=== PATIENT | female | born 2000 | race Caucasian/White ===

== ENCOUNTER 2024-08-25 12:28 | Emergency (ER) | payer BC, SELFPAY ==
[2024-08-25 12:35] VITALS: BP 122/68; PULSE 85; RESP 16; TEMP 36.7; O2SAT 100; BMI 22.3
--- NOTE | 2024-08-25 14:14 | CTR_ITS ---
PROCEDURE INFORMATION: Exam: CT Abdomen And Pelvis Without Contrast Exam date and time: 08/25/2024 4:16 PM Age: 23 years old Clinical indication: Abdominal pain; Additional info: Flank pain TECHNIQUE: Imaging protocol: Computed tomography of the abdomen and pelvis without contrast. Radiation optimization: All CT scans at this facility use at least one of these dose optimization techniques: automated exposure control; mA and/or kV adjustment per patient size (includes targeted exams where dose is matched to clinical indication); or iterative reconstruction. COMPARISON: CT abdomen pelvis wo/w [id number] 05/14/2019 3:18 AM RADIATION DOSE METRICS: Total DLP (mGy-cm): 322.15 FINDINGS: Lungs: Visualized lung bases appear clear. Liver: Liver appears unremarkable for unenhanced exam and without focal abnormality. Gallbladder and biliary ducts: Gallbladder shows no calcified gallstones and appears unremarkable for unenhanced exam. No significant biliary ductal dilatation. Pancreas: Normal. No ductal dilation. Spleen: Spleen appears upper limits of normal and unremarkable for unenhanced exam. A splenule is noted, variation of normal. Adrenal glands: Normal. No mass. Kidneys and ureters: Small punctate nonobstructing renal calculi are seen bilaterally. A 2.5 mm distal right ureteral calculus is seen just proximal to the UVJ. Klka-[id number] hydronephrosis of the right kidney and mild ureterectasis of the right ureter seen indicating secondary yptb-iz-sqokprea obstructive uropathy. Kidneys appear unremarkable otherwise for unenhanced exam. No abnormal perinephric stranding. Stomach and bowel: Unremarkable. No obstruction. No significant mucosal thickening. Moderate stool volume, more prominent in the right colon. Appendix: No evidence of appendicitis. Intraperitoneal space: No significant free fluid or ascites. No free air. Vasculature: Unremarkable. No abdominal aortic aneurysm. Lymph nodes: Unremarkable. No enlarged lymph nodes. Urinary bladder: Urinary bladder appears unremarkable for unenhanced exam. Reproductive: Unremarkable as visualized. Bones/joints: Bone windows show no acute osseous abnormality. Soft tissues: Unremarkable. CT/CT abdomen pelvis wo con [id number] IMPRESSION: 1. Small punctate nonobstructing bilateral renal calculi. 2. 2.5 mm distal right ureteral calculus just proximal to the UVJ with secondary [id number]-hd-[id number] obstructive uropathy on the right.
[2024-08-25 14:16] VITALS: BP 147/89; PULSE 93; RESP 16; O2SAT 100
--- NOTE | 2024-08-25 14:27 | ED_ITS ---
HPI - Back Pain/Injury 2 General: Chief Complaint: Back Pain/Injury Stated Complaint: ABD pain low back Time Seen by Provider: 08/25/24 14:13 History of Present Illness: 23-year-old female with no significant p ast medical history other than having had kidney stones in the past who presents the emergency room with flank pain. She been having right flank pain for a day or so. She has had some nausea and vomiting. No fevers. She has noted some mild dysuria. Related Data Previous Rx's Medication Instructions Recorded cephalexin 500 mg capsule 500 mg PO BID 5 days #10 caps 08/25/24 diclofenac sodium 50 mg 50 mg PO BID PRN pain #14 tabs 08/25/24 tablet,delayed release hydrocodone 5 mg-acetaminophen 325 1 tab PO Q8H PRN pain #14 tabs 08/25/24 mg tablet ondansetron 4 mg disintegrating 4 mg PO Q8H PRN nausea and 08/25/24 tablet vomiting #10 tabs polyethylene glycol 3350 17 17 g PO DAILY #510 grams 08/25/24 gram/dose oral powder (Miralax) tamsulosin 0.4 mg capsule (Flomax) 0.4 mg PO DAILY #30 caps 08/25/24 Allergies Allergy/AdvReac Type Severity Reaction Status Date / Time No Known Allergies Allergy Verified 08/25/24 12:44 Review of Systems 2 Narrative: Constitutional symptoms: Negative except as documented in HPI. Skin symptoms: Negative except as documented in HPI. Eye symptoms: Negative except as documented in HPI. ENMT symptoms: Negative except as documented in HPI. Respiratory symptoms: Negative except as documented in HPI. Cardiovascular symptoms: Negative except as documented in HPI. Gastrointestinal symptoms: Negative except as documented in HPI. Genitourinary symptoms: Negative except as documented in HPI. Musculoskeletal symptoms: Negative except as documented in HPI. Neurologic symptoms: Negative except as documented in HPI. Psychiatric symptoms: Negative except as documented in HPI. Endocrine symptoms: Negative except as documented in HPI. Physical Exam 2 Narrative: EXAM NARRATIVE: General: Alert, no acute distress. Skin: Warm, dry. Head: Normocephalic, atraumatic. Neck: Supple, trachea midline. Eye: Extraocular movements are intact. Ears, nose, mouth and throat: mucosa moist. Cardiovascular: Regular, Normal peripheral perfusion. Respiratory: Lungs are clear to auscultation, respirations are non-labored, breath sounds are equal, Symmetrical chest wall expansion. Gastrointestinal: Soft, right flank pain, Non distended Musculoskeletal: Normal ROM, no deformity. Neurological: Alert and oriented, No focal neurological deficit observed. Psychiatric: Cooperative, appropriate mood & affect. Course 2 Vital Signs: Vital signs: Vital Signs Temperature 98.0 F 08/25/24 12:35 Pulse Rate 65 08/25/24 17:00 Respiratory Rate 16 08/25/24 17:00 Blood Pressure 112/68 08/25/24 17:00 Pulse Oximetry 100 08/25/24 17:00 Oxygen Delivery Me thod Room Air 08/25/24 17:00 MDM - Back Pain/Injury Medical Decision Making Medical decision making: Differential diagnosis including but not limited to and based on the above HPI, review of systems and physical exam: Ureterolithiasis. Urinary tract infection. Appendicitis. Cholecystis. Musculoskeletal / back pain. Pyelonephritis Orders placed to evaluate differential diagnosis based on the above differential, HPI and physical exam Lab Review: Laboratory results were reviewed and interpreted by myself the emergency room physician. No leukocytosis. No anemia. No renal failure. Urine does show significant hematuria. CT of the abdomen pelvis without contrast: Small bilateral renal calculi. 2.5 mm distal right ureteral calculus just proximal to the UVJ with some moderate obstructive uropathy on the right. I reviewed the patient's medical record. Reexamination: Patient says that her pain is much improved. She is no longer nauseous. She says she has a mild headache. She has had kidney stones in the past. She has other stones in her kidneys. We discussed to return to the ER if she has a fever. We also discussed follow-up with urologist. Assessment and plan: Ureterolithiasis Obstructive uropathy ? IV Zofran in the emergency room. - Discharged home - Discussed plan with patient. Answered any questions. - Evaluation and treatment of this problem were appropriate in the emergency setting. Labs 08/25/24 14:26 08/25/24 14:26 Radiology Impressions Abdomen/Pelvis CT 08/25/24 14:14 IMPRESSION: 1. Small punctate nonobstructing bilateral renal calculi. 2. 2.5 mm distal right ureteral calculus just proximal to the UVJ with secondary efma-nj-azbehyxc obstructive uropathy on the right. Laboratory Results WBC 10.35 10^3/uL (3.29-11.43) 08/25/24 14: RBC 4.86 10^6/uL (3.85-5.65) 08/25/24 14:26 Hgb 14.50 g/dL (11.27-16.99) 08/25/24 14:26 Hct 42.9 % (36-47) 08/25/24 14:26 MCV 88.3 fl (85-98) 08/25/24 14:26 MCH 29.8 pg (27-33) 08/25/24 14:26 MCHC 33.8 g/dL (30-55) 08/25/24 14: RDW 11.4 % (12.1-15.1) L 08/25/24 14: Plt Count 298 10^3/cmm (157-399) 08/25/24 14: MPV 10.4 fL (7.4-10.4) 08/25/24 14:26 Neut % (Auto) 78.6 % 08/25/24 14:26 Lymph % (Auto) 11.8 % 08/25/24 14:26 Miller % (Auto) 7.1 % 08/25/24 14:26 Eos % (Auto) 1.9 % 08/25/24 14:26 Baso % (Auto) 0.3 % 08/25/24 14:26 Neut # (Auto) 8.14 10^3/uL (1.8-7.7) H 08/25/24 14:26 Lymph # (Auto) 1.2 10^3/uL (0.8-4.8) 08/25/24 14:26 Miller # (Auto) 0.7 10^3/uL (0.2-0.9) 08/25/24 14:26 Eos # (Auto) 0.2 10^3/uL (0.0-0.8) 08/25/24 14:26 Baso # (Auto) 0.0 10^3/uL (0.0-0.1) 08/25/24 14:26 Nucleated RBC % (auto) 0 % 08/25/24 14: Nucleated RBCs # 0.0 /100WBC 08/25/24 14:26 Sodium 141 mmol/L (136-145) 08/25/24 14:26 Potassium 3.9 mmol/L (3.5-5.1) 08/25/24 14:26 Chloride 105 mmol/L (98-107) 08/25/24 14:26 Carbon Dioxide 25 mmol/L (22-29) 08/25/24 14:26 Anion Gap 14.9 (5-19) 08/25/24 14:26 BUN 13 mg/dL (6-20) 08/25/24 14:26 Creatinine 0.8 mg/dL (0.5-0.9) 08/25/24 14:26 GFR Calculation 87.4 mL/min (90-130) L 08/25/24 14:26 Glucose 96 mg/dL (65-115) 08/25/24 14:26 Calculated Osmolality 292 mOsm/kg (285-295) 08/25/24 14:26 Lactic Acid 1.0 mmol/L (0.5-2.2) 08/25/24 14:26 Calcium 9.6 mg/dL (8.5-10.5) 08/25/24 14:26 Total Bilirubin 0.6 mg/dL (0.15-1.2) 08/25/24 14:26 AST 17 U/L (0-32) 08/25/24 14:26 ALT 11 U/L (0-33) 08/25/24 14:26 Alkaline Phosphatase 80 U/L (35-105) 08/25/24 14:26 Total Protein 7.5 g/dL (6.6-8.7) 08/25/24 14:26 Albumin 5.0 g/dL (3.5-5.2) 08/25/24 14:26 Globulin 2.5 g/dL (1.3-4.6) 08/25/24 14:26 HCG, Qual Negative (Negative) 08/25/24 15:17 Urine Color Yellow (Yellow) 08/25/24 15:17 Urine Appearance Clear (CLEAR) 08/25/24 15:17 Urine pH 6.0 (5-7) 08/25/24 15:17 Ur Specific [place] 1.024 (1.005-1.030) 08/25/24 15:17 Urine Protein Trace (Negative) A 08/25/24 15:17 Urine Glucose (UA) Negative (Normal) 08/25/24 15:17 Urine Ketones 2+ (Negative) H 08/25/24 15:17 Urine Blood 3+ (Negative) A 08/25/24 15:17 Urine Nitrate Negative (Negative) 08/25/24 15:17 Urine Bilirubin Negative (Negative) 08/25/24 15:17 Urine Urobilinogen 1.0 mg/dL (Negative) 08/25/24 15:17 Ur Leukocyte Esterase 1+ (Negative) A 08/25/24 15:17 Urine RBC >100 /hpf (0-2) H 08/25/24 15:17 Urine WBC 6-10 /hpf (0-5) 08/25/24 15:17 Ur Squamous Epith Cells 0-5 /hpf (0-5) 08/25/24 15:17 Amorphous Sediment Not Reportable 08/25/24 15:17 Urine Bacteria None seen /hpf (NONE) 08/25/24 15:17 Hyaline Casts 3.30 /lpf 08/25/24 15:17 All radiology interpretation(s) finalized by discharge Discharge Plan Discharge Patient Disposition: Home Clinical Impression: Ureterolithiasis Condition: Stable Prescriptions: New hydrocodone-acetaminophen 5-325 mg tablet 1 tab PO Q8H PRN (Reason: pain) Qty: 14 0RF Rx Instructions: Take 1/2 to 1 tab every 8 hours as needed for pain tamsulosin [Flomax] 0.4 mg capsule 0.4 mg PO DAILY Qty: 30 0RF cephalexin 500 mg capsule 500 mg PO BID 5 Days Qty: 10 0RF diclofenac sodium 50 mg tablet,delayed release (DR/EC) 50 mg PO BID PRN (Reason: pain) Qty: 14 0RF polyethylene glycol 3350 [Miralax] 17 gram/dose powder 17 g PO DAILY Qty: 510 0RF Rx Instructions: Take 1 scoop daily while taking pain medications. ondansetron 4 mg tablet,disintegrating 4 mg PO Q8H PRN (Reason: nausea and vomiting) Qty: 10 0RF Discharge Orders: Discharge ED (Routine); Ordered 08/25/24 Ordered By: Anaya Tello Referrals: Siddharth Rutledge [Referring] - 4-7 days (Call for a follow-up appointment either with Dr. Rutledge or with the urologist of your choosing.) Discharge Diet: Advance as tolerated Discharge Activity: Increase activity as tolerated Patient Instructions: Opioid Safety, Pain Management Activity Restrictions/Additional Instructions: Call for appointment with urology. If fever (temp >100.4) develops return to the emergency room immediately, as this is an emergency. Take nausea medication prior to taking pain medications. Thank you for choosing [facility] for your healthcare needs today. Please realize this is an emergency room and that we are providing you with a medical screening exam and this may not be complete and all inclusive of all the testing and or work up that you may need to determine your ailment or severity of your illness. You have been screened and evaluated and felt safe for discharge. Health conditions do change or evolve sometimes and as such it is important that you follow up with your Primary Doctor to be re checked, 3-5 days is a general good time frame for follow up. 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
[2024-08-25 14:36] LABS: Basophils % 0.3 %; Eosinophils # 0.2 10^3/uL (0.0-0.8); Eosinophils % 1.9 %; Hematocrit 42.9 % (36-47); Lymphocytes # 1.2 10^3/uL (0.8-4.8); Lymphocytes % 11.8 %; Mean Corpuscular HGB Conc 33.8 g/dL (30-55); Mean Corpuscular Hemoglobin 29.8 pg (27-33); Mean Corpuscular Volume 88.3 fl (85-98); Mean Platelet Volume 10.4 fL (7.4-10.4); Monocytes # 0.7 10^3/uL (0.2-0.9); Monocytes % 7.1 %; Neutrophils # 8.14 10^3/uL (1.8-7.7); Neutrophils % 78.6 %; Nucleated Red Blood Cells % 0 %; Platelet Count 298 10^3/cmm (157-399); Red Blood Count 4.86 10^6/uL (3.85-5.65); Red Cell Distribution Width 11.4 % (12.1-15.1); White Blood Count 10.35 10^3/uL (3.29-11.43)
[2024-08-25 14:48] LABS: Alanine Aminotransferase 11 U/L (0-33); Alkaline Phosphatase 80 U/L (35-105); Anion Gap 14.9 (5-19); Aspartate Amino Transferase 17 U/L (0-32); Blood Urea Nitrogen 13 mg/dL (6-20); Calcium 9.6 mg/dL (8.5-10.5); Carbon Dioxide 25 mmol/L (22-29); Chloride 105 mmol/L (98-107); Creatinine Clr Calc Pharmacy 95.7251; Globulin 2.5 g/dL (1.3-4.6); Glomerular Filtration Rate 87.4 mL/min (90-130); Glucose 96 mg/dL (65-115); Osmolality Calculated 292 mOsm/kg (285-295); Potassium 3.9 mmol/L (3.5-5.1); Sodium 141 mmol/L (136-145); Total Bilirubin 0.6 mg/dL (0.15-1.2); Total Protein 7.5 g/dL (6.6-8.7)
[2024-08-25] MEDS: ondansetron 2 mg/ML SDV 2 mL 4 MG IVP (15:08)
[2024-08-25 15:32] LABS: Bilirubin Urine Negative (Negative); Blood Urine 3+ (Negative); Glucose Urine UA Negative (Normal); HCG Qualitative Urine. Negative (Negative); Ketones Urine 2+ (Negative); Leukocyte Esterase Urine 1+ (Negative); Nitrate Urine Negative (Negative); Protein Urine Trace (Negative); Specific Gravity, Urine 1.024 (1.005-1.030); Urine Appearance Clear (CLEAR); Urine Color Yellow (Yellow)
[2024-08-25 15:37] LABS: Add Urine Microscopic? YES; Bacteria Urine None Seen /hpf; RBC Urine >100 /hpf (0-2); Squamous Epithelial Cell Urine 0-5 /hpf (0-5)
[2024-08-25 15:48] LABS: Add Urine Culture? Yes
[2024-08-25 17:00] VITALS: BP 112/68; PULSE 65; RESP 16; O2SAT 100
[2024-08-25 18:00] VITALS: BP 98/70; PULSE 71; O2SAT 100
[2024-08-25] MEDS: cefTRIAXone 1,000 mg SDV 1000 MG IVP (18:01)
[2024-08-25] MEDS: HYDROcodone-acetaminophen 5-325 mg Tablet 2 TAB PO (18:26)
[2024-08-25] MEDS: ondansetron 4 MG Tablet PO ×2 (18:27)
[2024-08-25 18:33] VITALS: BP 113/80; PULSE 74; O2SAT 100
== END 2024-08-25 18:35 | disposition home or self-care (01) ==
PROVIDERS: Nurse Practitioner; Emergency Provider Emergency Medicine
DX: N20.1 Calculus of ureter (principal); Z87.442 Personal history of urinary calculi
CPT/HCPCS: 36415; 74176; 80053; 81001; 81025; 83605; 85025; 87040; 87086; 96374; 96375; 99285; J0696; J2405; Q0162

== ENCOUNTER 2024-09-27 02:40 | Emergency (ER) | payer BC, SELFPAY ==
[2024-09-27 02:42] VITALS: BP 125/83; PULSE 117; RESP 16; TEMP 36.8; O2SAT 100; BMI 22.3
--- NOTE | 2024-09-27 02:46 | CTR_ITS ---
PROCEDURE INFORMATION: Exam: CT Abdomen And Pelvis Without Contrast Exam date and time: 09/27/2024 2:56 AM Age: 23 years old Clinical indication: Abdominal pain; Flank; Left; Additional info: Left flank pain, history of stones TECHNIQUE: Imaging protocol: Computed tomography of the abdomen and pelvis without contrast. Radiation optimization: All CT scans at this facility use at least one of these dose optimization techniques: automated exposure control; mA and/or kV adjustment per patient size (includes targeted exams where dose is matched to clinical indication); or iterative reconstruction. COMPARISON: CT abdomen pelvis wo con [id number] 08/25/2024 4:16 PM RADIATION DOSE METRICS: Total DLP (mGy-cm): 335.56 FINDINGS: Liver: Normal. No mass. Gallbladder and biliary ducts: Normal. No calcified stones. No ductal dilation. Pancreas: Normal. No ductal dilation. Spleen: Normal. No splenomegaly. Adrenal glands: Normal. No mass. Kidneys and ureters: Moderate left ureteropelvic caliectasis secondary to a 2 mm distal left ureteral calculus (3 -173). Stomach and bowel: Unremarkable. No obstruction. No mucosal thickening. Appendix: No evidence of appendicitis. Intraperitoneal space: Unremarkable. No free air. No significant fluid collection. Vasculature: Unremarkable. No abdominal aortic aneurysm. Lymph nodes: Unremarkable. No enlarged lymph nodes. Urinary bladder: Unremarkable as visualized. Reproductive: Unremarkable as visualized. Bones/joints: Unremarkable. No acute fracture. Soft tissues: Unremarkable. Other findings: Additional nonobstructing calculi are present on each side. CT/CT kidney stone [id number] IMPRESSION: Mild/moderately obstructing distal left ureteral calculus.
--- NOTE | 2024-09-27 02:50 | ED_ITS ---
Documented by User: Cristofer Gee DO 09/27/24 02:52 HPI - Abdominal Pain 2 General: Chief Complaint: Abdominal Pain Stated Complaint: Possible Kidney Stones Time Seen by Provider: 09/27/24 02:44 History of Present Illness: Patient comes to the ER having left flank pain that radiates down to her groin. Patient think she has a kidney stone she has had multiple ones in the past. Patient is also has nausea and vomiting. Patient denies any fever or chills. Related Data Date of Last Menstrual Period: 09/13/24 Previous Rx's ?Medication ?Instructions ?Recorded diclofenac sodium 50 mg 50 mg PO BID PRN pain #14 ta bs 08/25/24 tablet,delayed release hydrocodone 5 mg-acetaminophen 325 1 tab PO Q8H PRN pa in #14 tabs 08/25/24 mg tablet ondansetron 4 mg disintegrating 4 mg PO Q8H PRN nausea and 08/25/24 tablet vomiting #10 tabs polyethylene glycol 3350 17 17 g PO DAILY #510 grams 0 08/25/24 gram/dose oral powder (Miralax) tamsulosin 0.4 mg capsule (Flomax) 0.4 mg PO DAILY #30 caps 08/25/24 cefdinir 300 mg capsule 300 mg PO BID 7 days #14 cap s 09/27/24 hydrocodone 5 mg-acetaminophen 325 1 tab PO Q6H PRN pa in #20 tabs 09/27/24 mg tablet ondansetron 8 mg disintegrating 8 mg PO Q6H #14 tabs 0 09/27/24 tablet polyethylene glycol 3350 17 17 g PO DAILY #510 grams 0 09/27/24 gram/dose oral powder (Miralax) tamsulosin 0.4 mg capsule (Flomax) 0.4 mg PO DAILY #30 caps 09/27/24 Allergies Allergy/AdvReac Type Severity Reaction Status Date / Time No Known Allergies Allergy Verified 09/27/24 02:46 Review of Systems 2 General: Reports: 10 or more systems reviewed and unremarkable except in HPI and below PFSH ED 2 Female Reproductive History: Date of last menstrual period: 09/13/24 Physical Exam 2 Const: COMMON NORMALS: no acute distress, average body habitus, patient oriented x3, no limitations, healthy appearing, alert and well nourished HENMT: COMMON NORMALS: normocephalic, atraumatic, hearing grossly normal bilaterally, external ears normal, Normal external nose present and moist oral mucous membranes HEAD & SCALP: normocephalic and atraumatic NOSE: Normal external nose present EXTERNAL EAR: Yes external ears normal Neck/C-Spine: COMMON NORMALS: full ROM, no lymphadenopathy, supple, no meningeal signs, no JVD and Thyroid normal THYROID: Thyroid normal Chest: COMMONS NORMALS: normal inspection of the chest and normal palpation of entire chest wall Resp: COMMON NORMALS: normal respiratory effort, No retractions, No use of accessory muscles and clear to auscultation bilaterally AUSCULTATION: clear to auscultation bilaterally Cardio: COMMON NORMALS: no JVD, regular rate, regular rhythm, S1 normal heart sound present, S2 normal heart sound present, No gallops present (Cardio), No clicks present (Cardio), No murmurs present (Cardio) and No rub (Cardio) R ATE: regular rate RHYTHM: regular rhythm HEART SOUNDS: S1 normal heart sound present and S2 normal heart sound present GI: COMMON NORMALS: Normal to inspection, nondistended, normoactive bowel sounds present, Soft to palpation, non-tender, No hepatosplenomegaly present and no masses PALPATION: Yes Soft to palpation and Yes No hepatosplenomegaly present Neuro: COMMON NORMALS: patient oriented x3 SENSORIUM/ORIENTATION: Yes alert MENINGEAL SIGNS: Yes no meningeal signs Course 2 Vital Signs: Vital signs: Vital Signs Temperature 98.3 F 09/27/24 02:42 Pulse Rate 117 H 09/27/24 02:42 Respiratory Rate 16 09/27/24 02:42 Blood Pressure 125/83 09/27/24 02:42 Pulse Oximetry 100 09/27/24 02:42 Oxygen Delivery Me thod Room Air 09/27/24 02:42 MDM - Abdominal Pain Medical Records I reviewed the patient's medical records. Lab Data I reviewed the patient's lab results. 09/27/24 03:20 09/27/24 03:20 Labs/Radiology: Radiology Impressions Abdomen/Pelvis CT 09/27/24 02:46 IMPRESSION: Mild/moderately obstructing distal left ureteral calculus. Laboratory Results WBC 12.70 10^3/uL (3.29-11.43) H 09/27/24 03:20 Corrected WBC Cancelled 09/27/24 02:54 RBC 4.49 10^6/uL (3.85-5.65) 09/27/24 03:20 Hgb 13.50 g/dL (11.27-16.99) 09/27/24 03:20 Hct 38.8 % (36-47) 09/27/24 03:20 MCV 86.4 fl (85-98) 09/27/24 03:20 MCH 30.1 pg (27-33) 09/27/24 03:20 MCHC 34.8 g/dL (30-55) 09/27/24 03:20 RDW 11.3 % (12.1-15.1) L 09/27/24 03:20 Plt Count 315 10^3/cmm (157-399) 09/27/24 03:20 MPV 10.3 fL (7.4-10.4) 09/27/24 03:20 Gran % Cancelled 09/27/24 02:54 Neut % (Auto) 81.7 % 09/27/24 03:20 Lymph % (Auto) 8.3 % 09/27/24 03:20 [place] % (Auto) 9.2 % 09/27/24 03:20 Eos % (Auto) 0.2 % 09/27/24 03:20 Baso % (Auto) 0.3 % 09/27/24 03:20 Neut # (Auto) 10.37 10^3/uL (1.8-7.7) H 09/27/24 03:20 Lymph # (Auto) 1.1 10^3/uL (0.8-4.8) 09/27/24 03:20 [place] # (Auto) 1.2 10^3/uL (0.2-0.9) H 09/27/24 03:20 Eos # (Auto) 0.0 10^3/uL (0.0-0.8) 09/27/24 03:20 Baso # (Auto) 0.0 10^3/uL (0.0-0.1) 09/27/24 03:20 Absolute Gran (auto) Cancelled 09/27/24 02:54 Nucleated RBC % (auto) 0 % 09/27/24 03:20 Nucleated RBCs # 0.0 /100WBC 09/27/24 03:20 Sodium 141 mmol/L (136-145) 02/04/25 03:20 Potassium 3.3 mmol/L (3.5-5.1) L 09/27/24 03:20 Chloride 104 mmol/L (98-107) 09/27/24 03:20 Carbon Dioxide 22 mmol/L (22-29) 09/27/24 03:20 Anion Gap 18.3 (5-19) 09/27/24 03:20 BUN 15 mg/dL (6-20) 09/27/24 03:20 Creatinine 1.2 mg/dL (0.5-0.9) H 09/27/24 03:20 GFR Calculation 54.7 mL/min (90-130) L 09/27/24 03:20 Glucose 113 mg/dL (65-115) 09/27/24 03:20 Calculated Osmolality 294 mOsm/kg (285-295) 09/27/24 03:20 Calcium 8.9 mg/dL (8.5-10.5) 09/27/24 03:20 Total Bilirubin 0.6 mg/dL (0.15-1.2) 09/27/24 03:20 AST 17 U/L (0-32) 09/27/24 03:20 ALT 13 U/L (0-33) 09/27/24 03:20 Alkaline Phosphatase 77 U/L (35-105) 09/27/24 03:20 Total Protein 6.7 g/dL (6.6-8.7) 09/27/24 03:20 Albumin 4.5 g/dL (3.5-5.2) 09/27/24 03:20 Globulin 2.2 g/dL (1.3-4.6) 09/27/24 03:20 Ser , Semi-Qnt < 1.00 mIU/mL 09/27/24 03:20 Urine Color Dark yellow (Yellow) A 09/27/24 03:14 Urine Appearance Cloudy (CLEAR) A 09/27/24 03:14 Urine pH 6.0 (5-7) 09/27/24 03:14 Ur Specific [place] 1.027 (1.005-1.030) 09/27/24 03:14 Urine Protein 1+ (Negative) A 09/27/24 03:14 Urine Glucose (UA) Negative (Normal) 09/27/24 03:14 Urine Ketones 3+ (Negative) H 09/27/24 03:14 Urine Blood 3+ (Negative) A 09/27/24 03:14 Urine Nitrate Negative (Negative) 09/27/24 03:14 Urine Bilirubin Negative (Negative) 09/27/24 03:14 Urine Urobilinogen 1.0 mg/dL (Negative) 09/27/24 03:14 Ur Leukocyte Esterase 2+ (Negative) A 09/27/24 03:14 Urine RBC 51-100 /hpf (0-2) H 09/27/24 03:14 Urine WBC >100 /hpf (0-5) H 09/27/24 03:14 Ur Squamous Epith Cells 11-20 /hpf (0-5) H 09/27/24 03:14 Amorphous Sediment Not Reportable 09/27/24 03:14 Urine Bacteria 2+ /hpf (NONE) H 09/27/24 03:14 Urine Mucus 3+ /hpf 09/27/24 03:14 All radiology interpretation(s) finalized by discharge Discharge Plan Discharge Patient Disposition: Home Clinical Impression: Ureterolithiasis Condition: Stable Prescriptions: New hydrocodone-acetaminophen 5-325 mg tablet 1 tab PO Q6H PRN (Reason: pain) Qty: 20 0RF ondansetron 8 mg tablet,disintegrating 8 mg PO Q6H Qty: 14 0RF Rx Instructions: Take 1/2-1 tab every 6 hours as needed for nausea and vomiting tamsulosin [Flomax] 0.4 mg capsule 0.4 mg PO DAILY Qty: 30 0RF polyethylene glycol 3350 [Miralax] 17 gram/dose powder 17 g PO DAILY Qty: 510 0RF Rx Instructions: Take 1 scoop daily while taking pain medications. cefdinir 300 mg capsule 300 mg PO BID 7 Days Qty: 14 0RF No Action hydrocodone-acetaminophen 5-325 mg tablet 1 tab PO Q8H PRN (Reason: pain) Qty: 14 0RF Rx Instructions: Take 1/2 to 1 tab every 8 hours as needed for pain tamsulosin [Flomax] 0.4 mg capsule 0.4 mg PO DAILY Qty: 30 0RF diclofenac sodium 50 mg tablet,delayed release (DR/EC) 50 mg PO BID PRN (Reason: pain) Qty: 14 0RF polyethylene glycol 3350 [Miralax] 17 gram/dose powder 17 g PO DAILY Qty: 510 0RF Rx Instructions: Take 1 scoop daily while taking pain medications. ondansetron 4 mg tablet,disintegrating 4 mg PO Q8H PRN (Reason: nausea and vomiting) Qty: 10 0RF Discharge Orders: Discharge ED (Routine); Ordered 09/27/24 Ordered By: Anaya Tello Referrals: Siddharth Rutledge [Referring] - 4-7 days (Please call for an appointment with Dr. Rutledge or the urologist of your choosing.) Discharge Diet: Usual diet Discharge Activity: Increase activity as tolerated Patient Instructions: Kidney Stones (ED), Opioid Safety, Pain Management Activity Restrictions/Additional Instructions: Call for appointment with urology. If fever (temp >100.4) develops return to the emergency room immediately, as this is an emergency. Take nausea medication prior to taking pain medications. Thank you for choosing [facility] for your healthcare needs today. Please realize this is an emergency room and that we are providing you with a medical screening exam and this may not be complete and all inclusive of all the testing and or work up that you may need to determine your ailment or severity of your illness. You have been screened and evaluated and felt safe for discharge. Health conditions do change or evolve sometimes and as such it is important that you follow up with your Primary Doctor to be re checked, 3-5 days is a general good time frame for follow up. You are always welcome to return to the ED for re assessment if your symptoms are worsening or you have new concerns Print Language: Maldivian Coding Level of Care Code ED Echocardiograph Technician for Chg Fwd Documented by User: Anaya Tello MD 09/27/24 06:30 HPI - Abdominal Pain 2 General: Chief Complaint: Abdominal Pain Stated Complaint: Possible Kidney Stones Time Seen by Provider: 09/27/24 02:44 Related Data Previous Rx's ?Medication ?Instructions ?Recorded diclofenac sodium 50 mg 50 mg PO BID PRN pain #14 ta bs 08/25/24 tablet,delayed release hydrocodone 5 mg-acetaminophen 325 1 tab PO Q8H PRN pa in #14 tabs 08/25/24 mg tablet ondansetron 4 mg disintegrating 4 mg PO Q8H PRN nausea and 08/25/24 tablet vomiting #10 tabs polyethylene glycol 3350 17 17 g PO DAILY #510 grams 0 08/25/24 gram/dose oral powder (Miralax) tamsulosin 0.4 mg capsule (Flomax) 0.4 mg PO DAILY #30 caps 08/25/24 cefdinir 300 mg capsule 300 mg PO BID 7 days #14 cap s 09/27/24 hydrocodone 5 mg-acetaminophen 325 1 tab PO Q6H PRN pa in #20 tabs 09/27/24 mg tablet ondansetron 8 mg disintegrating 8 mg PO Q6H #14 tabs 0 09/27/24 tablet polyethylene glycol 3350 17 17 g PO DAILY #510 grams 0 09/27/24 gram/dose oral powder (Miralax) tamsulosin 0.4 mg capsule (Flomax) 0.4 mg PO DAILY #30 caps 09/27/24 Allergies Allergy/AdvReac Type Severity Reaction Status Date / Time No Known Allergies Allergy Verified 09/27/24 02:46 Course 2 Vital Signs: Vital signs: Vital Signs Temperature 98.3 F 09/27/24 02:42 Pulse Rate 117 H 09/27/24 02:42 Respiratory Rate 16 09/27/24 02:42 Blood Pressure 125/83 09/27/24 02:42 Pulse Oximetry 100 09/27/24 02:42 Oxygen Delivery Nd thod Room Air 09/27/24 02:42 MDM - Abdominal Pain Medical Decision Making Patient care transitioned ny at shift change. Awaiting CT scan. Lab work showed some mild leukocytosis. Some mild renal insufficiency so fluids were given. Urine was quite concentrated which would also indicate dehydration. She had hematuria and leukocytosis in her urine. Antibiotics were given as well. Recommend follow-up with urology. Assessment and plan: Ureterolithiasis UTI Dehydration ? Rocephin, pain control and normal saline bolus. - Discharged home - Discussed plan with patient. Answered any questions. - Evaluation and treatment of this problem were appropriate in the emergency setting. Lab Data 09/27/24 03:20 09/27/24 03:20 Labs/Radiology: Radiology Impressions Abdomen/Pelvis CT 09/27/24 02:46 IMPRESSION: Mild/moderately obstructing distal left ureteral calculus. Laboratory Results WBC 12.70 10^3/uL (3.29-11.43) H 09/27/24 03:20 Corrected WBC Cancelled 09/27/24 02:54 RBC 4.49 10^6/uL (3.85-5.65) 09/27/24 03:20 Hgb 13.50 g/dL (11.27-16.99) 09/27/24 03:20 Hct 38.8 % (36-47) 09/27/24 03:20 MCV 86.4 fl (85-98) 09/27/24 03:20 MCH 30.1 pg (27-33) 09/27/24 03:20 MCHC 34.8 g/dL (30-55) 09/27/24 03:20 RDW 11.3 % (12.1-15.1) L 09/27/24 03:20 Plt Count 315 10^3/cmm (157-399) 09/27/24 03:20 MPV 10.3 fL (7.4-10.4) 09/27/24 03:20 Gran % Cancelled 09/27/24 02:54 Neut % (Auto) 81.7 % 09/27/24 03:20 Lymph % (Auto) 8.3 % 09/27/24 03:20 [place] % (Auto) 9.2 % 09/27/24 03:20 Eos % (Auto) 0.2 % 09/27/24 03:20 Baso % (Auto) 0.3 % 09/27/24 03:20 Neut # (Auto) 10.37 10^3/uL (1.8-7.7) H 09/27/24 03:20 Lymph # (Auto) 1.1 10^3/uL (0.8-4.8) 09/27/24 03:20 [place] # (Auto) 1.2 10^3/uL (0.2-0.9) H 09/27/24 03:20 Eos # (Auto) 0.0 10^3/uL (0.0-0.8) 09/27/24 03:20 Baso # (Auto) 0.0 10^3/uL (0.0-0.1) 09/27/24 03:20 Absolute Gran (auto) Cancelled 09/27/24 02:54 Nucleated RBC % (auto) 0 % 09/27/24 03:20 Nucleated RBCs # 0.0 /100WBC 09/27/24 03:20 Sodium 141 mmol/L (136-145) 09/27/24 03:20 Potassium 3.3 mmol/L (3.5-5.1) L 09/27/24 03:20 Chloride 104 mmol/L (98-107) 09/27/24 03:20 Carbon Dioxide 22 mmol/L (22-29) 09/27/24 03:20 Anion Gap 18.3 (5-19) 09/27/24 03:20 BUN 15 mg/dL (6-20) 09/27/24 03:20 Creatinine 1.2 mg/dL (0.5-0.9) H 09/27/24 03:20 GFR Calculation 54.7 mL/min (90-130) L 09/27/24 03:20 Glucose 113 mg/dL (65-115) 09/27/24 03:20 Calculated Osmolality 294 mOsm/kg (285-295) 09/27/24 03:20 Calcium 8.9 mg/dL (8.5-10.5) 09/27/24 03:20 Total Bilirubin 0.6 mg/dL (0.15-1.2) 09/27/24 03:20 AST 17 U/L (0-32) 09/27/24 03:20 ALT 13 U/L (0-33) 09/27/24 03:20 Alkaline Phosphatase 77 U/L (35-105) 09/27/24 03:20 Total Protein 6.7 g/dL (6.6-8.7) 09/27/24 03:20 Albumin 4.5 g/dL (3.5-5.2) 09/27/24 03:20 Globulin 2.2 g/dL (1.3-4.6) 09/27/24 03:20 Ser , Semi-Qnt < 1.00 mIU/mL 09/27/24 03:20 Urine Color Dark yellow (Yellow) A 09/27/24 03:14 Urine Appearance Cloudy (CLEAR) A 09/27/24 03:14 Urine pH 6.0 (5-7) 09/27/24 03:14 Ur Specific [place] 1.027 (1.005-1.030) 09/27/24 03:14 Urine Protein 1+ (Negative) A 09/27/24 03:14 Urine Glucose (UA) Negative (Normal) 09/27/24 03:14 Urine Ketones 3+ (Negative) H 09/27/24 03:14 Urine Blood 3+ (Negative) A 09/27/24 03:14 Urine Nitrate Negative (Negative) 09/27/24 03:14 Urine Bilirubin Negative (Negative) 09/27/24 03:14 Urine Urobilinogen 1.0 mg/dL (Negative) 09/27/24 03:14 Ur Leukocyte Esterase 2+ (Negative) A 09/27/24 03:14 Urine RBC 51-100 /hpf (0-2) H 09/27/24 03:14 Urine WBC >100 /hpf (0-5) H 09/27/24 03:14 Ur Squamous Epith Cells 11-20 /hpf (0-5) H 09/27/24 03:14 Amorphous Sediment Not Reportable 09/27/24 03:14 Urine Bacteria 2+ /hpf (NONE) H 09/27/24 03:14 Urine Mucus 3+ /hpf 09/27/24 03:14 Discharge Plan Discharge Patient Disposition: Home Clinical Impression: Ureterolithiasis Condition: Stable Prescriptions: New hydrocodone-acetaminophen 5-325 mg tablet 1 tab PO Q6H PRN (Reason: pain) Qty: 20 0RF ondansetron 8 mg tablet,disintegrating 8 mg PO Q6H Qty: 14 0RF Rx Instructions: Take 1/2-1 tab every 6 hours as needed for nausea and vomiting tamsulosin [Flomax] 0.4 mg capsule 0.4 mg PO DAILY Qty: 30 0RF polyethylene glycol 3350 [Miralax] 17 gram/dose powder 17 g PO DAILY Qty: 510 0RF Rx Instructions: Take 1 scoop daily while taking pain medications. cefdinir 300 mg capsule 300 mg PO BID 7 Days Qty: 14 0RF No Action hydrocodone-acetaminophen 5-325 mg tablet 1 tab PO Q8H PRN (Reason: pain) Qty: 14 0RF Rx Instructions: Take 1/2 to 1 tab every 8 hours as needed for pain tamsulosin [Flomax] 0.4 mg capsule 0.4 mg PO DAILY Qty: 30 0RF diclofenac sodium 50 mg tablet,delayed release (DR/EC) 50 mg PO BID PRN (Reason: pain) Qty: 14 0RF polyethylene glycol 3350 [Miralax] 17 gram/dose powder 17 g PO DAILY Qty: 510 0RF Rx Instructions: Take 1 scoop daily while taking pain medications. ondansetron 4 mg tablet,disintegrating 4 mg PO Q8H PRN (Reason: nausea and vomiting) Qty: 10 0RF Discharge Orders: Discharge ED (Routine); Ordered 09/27/24 Ordered By: Anaya Tello Referrals: Siddharth Rutledge [Referring] - 4-7 days (Please call for an appointment with Dr. Rutledge or the urologist of your choosing.) Discharge Diet: Usual diet Discharge Activity: Increase activity as tolerated Patient Instructions: Kidney Stones (ED), Opioid Safety, Pain Management Activity Restrictions/Additional Instructions: Call for appointment with urology. If fever (temp >100.4) develops return to the emergency room immediately, as this is an emergency. Take nausea medication prior to taking pain medications. Thank you for choosing [facility] for your healthcare needs today. Please realize this is an emergency room and that we are providing you with a medical screening exam and this may not be complete and all inclusive of all the testing and or work up that you may need to determine your ailment or severity of your illness. You have been screened and evaluated and felt safe for discharge. Health conditions do change or evolve sometimes and as such it is important that you follow up with your Primary Doctor to be re checked, 3-5 days is a general good time frame for follow up. You are always welcome to return to the ED for re assessment if your symptoms are worsening or you have new concerns Print Language: Maldivian Coding Level of Care Code ED Echocardiograph Technician for Garry Cox
[2024-09-27] MEDS: ondansetron 2 mg/ML SDV 2 mL 4 MG IVP (02:58)
[2024-09-27 04:16] VITALS: BP 106/70; PULSE 69; O2SAT 100
[2024-09-27 05:26] LABS: Alanine Aminotransferase 13 U/L (0-33); Albumin Level 4.5 g/dL (3.5-5.2); Alkaline Phosphatase 77 U/L (35-105); Anion Gap 18.3 (5-19); Aspartate Amino Transferase 17 U/L (0-32); Blood Urea Nitrogen 15 mg/dL (6-20); Calcium 8.9 mg/dL (8.5-10.5); Carbon Dioxide 22 mmol/L (22-29); Chloride 104 mmol/L (98-107); Globulin 2.2 g/dL (1.3-4.6); Glomerular Filtration Rate 54.7 mL/min (90-130); Glucose 113 mg/dL (65-115); HCG Quantitative < 1.00 mIU/mL; Osmolality Calculated 294 mOsm/kg (285-295); Potassium 3.3 mmol/L (3.5-5.1); Sodium 141 mmol/L (136-145); Total Bilirubin 0.6 mg/dL (0.15-1.2); Total Protein 6.7 g/dL (6.6-8.7)
[2024-09-27 05:27] LABS: Creatinine Clr Calc Pharmacy 63.8167
[2024-09-27 05:28] LABS: Basophils % 0.3 %; Eosinophils % 0.2 %; Hematocrit 38.8 % (36-47); Lymphocytes # 1.1 10^3/uL (0.8-4.8); Lymphocytes % 8.3 %; Mean Corpuscular HGB Conc 34.8 g/dL (30-55); Mean Corpuscular Hemoglobin 30.1 pg (27-33); Mean Corpuscular Volume 86.4 fl (85-98); Mean Platelet Volume 10.3 fL (7.4-10.4); Monocytes # 1.2 10^3/uL (0.2-0.9); Monocytes % 9.2 %; Neutrophils # 10.37 10^3/uL (1.8-7.7); Neutrophils % 81.7 %; Nucleated Red Blood Cells % 0 %; Platelet Count 315 10^3/cmm (157-399); Red Blood Count 4.49 10^6/uL (3.85-5.65); Red Cell Distribution Width 11.3 % (12.1-15.1)
[2024-09-27 05:32] LABS: Bilirubin Urine Negative (Negative); Blood Urine 3+ (Negative); Glucose Urine UA Negative (Normal); Ketones Urine 3+ (Negative); Leukocyte Esterase Urine 2+ (Negative); Nitrate Urine Negative (Negative); Protein Urine 1+ (Negative); Specific Gravity, Urine 1.027 (1.005-1.030); Urine Appearance Cloudy (CLEAR); Urine Color Dark Yellow (Yellow)
[2024-09-27 05:33] LABS: Add Urine Culture? No; Add Urine Microscopic? YES; Bacteria Urine 2+ /hpf; Mucus Urine 3+ /hpf; RBC Urine 51-100 /hpf (0-2); UA Slide Review UA Slide Review Perf; WBC Urine >100 /hpf (0-5)
[2024-09-27 05:46] VITALS: BP 109/62; PULSE 67; O2SAT 100
[2024-09-27] MEDS: cefTRIAXone 1,000 mg SDV 1000 MG IVP (06:24)
[2024-09-27 06:39] VITALS: BP 101/67; PULSE 62; O2SAT 98
[2024-09-27] MEDS: sodium chloride 0.9% 1,000 ML 999 ML IV (06:44)
[2024-09-27 07:40] VITALS: BP 107/70; PULSE 90; O2SAT 100
== END 2024-09-27 07:43 | disposition home or self-care (01) ==
PROVIDERS: Emergency Medicine; Emergency Provider Emergency Medicine
DX: N20.1 Calculus of ureter (principal)
CPT/HCPCS: 36415; 74176; 80053; 81001; 84702; 85025; 96361; 96374; 96375; 99285; J0696; J2405; J7030